=== PATIENT | male | born 1995 | race African-American/Black ===

== ENCOUNTER 2018-06-26 07:44 | Emergency (ER) | payer OTHER | END 2018-06-26 09:22 | disposition home or self-care (01) | LOC: M ED 07:44 | DX: M25.572 Pain in left ankle and joints of left foot (principal); Z72.0 Tobacco use | CPT/HCPCS: 73610 ==

== ENCOUNTER 2018-08-05 12:26 | Emergency (ER) | payer OTHER | END 2018-08-05 17:27 | disposition home or self-care (01) | LOC: M ED 12:26 | DX: M25.572 Pain in left ankle and joints of left foot (principal); M54.9 Dorsalgia, unspecified; G89.29 Other chronic pain | CPT/HCPCS: 73610 ==